=== PATIENT | male | born 1950 | race Caucasian/White ===

== ENCOUNTER 2018-11-19 08:34 | Outpatient (CLI) | payer MEDICARE | END 2018-11-19 23:59 | disposition home or self-care (01) | LOC: CFH 08:34 | PROVIDERS: ATTEND Nurse Practitioner Family | DX: R10.2 Pelvic and perineal pain (principal); R82.4 Acetonuria; R31.9 Hematuria, unspecified; M51.36 Other intervertebral disc degeneration, lumbar region; M46.06 Spinal enthesopathy, lumbar region | CPT/HCPCS: 74176 ==

== ENCOUNTER → 2020-08-11 | Outpatient (CLI) | payer MEDICARE ==
[~2020-08-11] MED LIST: OMNIPAQUE 350 MG/ML, 100ML BOTTLE ONE
== END | disposition home or self-care (01) ==
LOC: CFH 08:51
PROVIDERS: ATTEND Nurse Practitioner Family
DX: K57.30 Diverticulosis of large intestine without perforation or abscess without bleeding (principal); N28.1 Cyst of kidney, acquired; M47.816 Spondylosis without myelopathy or radiculopathy, lumbar region
CPT/HCPCS: 74177; Q9967